=== PATIENT | male | born 1965 ===

== ENCOUNTER → 2017-07-16 | Outpatient (CLI) | payer OTHER ==
[~2017-07-16] MED LIST: BUPR-126 PO; BUPR-472 PO; NEBI5TAB PO; OLME1TAB63 PO; OMEP-218 PO
--- NOTE | 2017-07-16 19:31 | RT STRESS TEST REPORT ---
FACILITY: [facility] PATIENT NAME: YADI SHABAZZ : [id number] MR: [id number] V: [id number] EXAM DATE: ORDERING PHYSICIAN: ALEXYS DEGROOT TECHNOLOGIST: Allegra [employer] Time: 2017-07-16 14:08:22 Total Exercise Time: 00:06:17 Test Indications: Chest Pain / Discomfort Medications: Protocol: BRUCE2 Max HR: 121 BPM 72% of Pred: 167 BPM Max BP: 184/088 mmHG Max Work Load: 7.4 METS Consider chemical stress test Confirmed by TERA KEBEDE ([id number]) on 07/16/2017 7:30:33 PM Referred By: Overread By: TERA KEBEDE
== END ==
LOC: RESP 14:00
PROVIDERS: ATTEND Physician Assistant
DX: R07.89 Other chest pain (principal)
CPT/HCPCS: 93017

== ENCOUNTER → 2017-07-22 | Outpatient (CLI) | payer OTHER ==
--- NOTE | 2017-07-22 15:23 | RADIOLOGY IMAGING REPORT ---
FACILITY: [facility] PATIENT NAME: Jorge Keating : 1965 MR: [id number] V: [id number] EXAM DATE: ORDERING PHYSICIAN: ALEXYS DEGROOT TECHNOLOGIST: Location: [facility] Patient: Jorge Keating : 1965 Visit/Account:[id number] Date of Sevice: 07/22/2017 EXAMINATION: Single Isotope SPECT Imaging with Exercise and Gated SPECT Imaging DATE OF EXAMINATION: 07/22/2017 DATE OF INTERPRETATION: 07/22/2017 REQUESTING PHYSICIAN: ALEXYS DEGROOT INDICATION: The patient is a 51-year-old male evaluated for chest pain. PROCEDURE: After informed consent the patient received an intravenous injection of 12.9 mCi of Tc-9 9m sestamibi followed at the appropriate time interval by rest imaging. The patient then exercised a ccording to the standard Donnell protocol for 10 minutes achieving 11 METS. Resting heart rate was 78 bpm with a peak heart rate of 146 bpm which is 87 % of maximal predicted heart rate for age. Blood pressure at rest was 108 / 83; blood pressure during exercise was 178 / 92. There was no chest pain during exercise. Exercise was discontinued because of fatigue. Baseline EKG demonstrates sinus rhyt hm with inferior T wave inversions. There were no EKG changes of ischemia at peak exercise. Approxi mately one minute and 30 seconds prior to the termination of exercise, the patient received an intrav enous injection of 29.9 mCi of Tc-99m sestamibi followed by stress imaging. RAW DATA: Examination of the summed raw data revealed a good quality study. MYOCARDIAL PERFUSION: The tomographic images demonstrate normal myocardial perfusion with no evidenc e of infarct or ischemia. There is no TID. GATED IMAGES: The gated images demonstrate hyperdynamic ejection fraction >70% with normal wall jose on and thickening IMPRESSION: 1. Normal treadmill ECG with no evidence of ischemia. 2. Normal myocardial perfusion scan. 3. Hyperdynamic LV systolic function; LVEF >70%. 4. Based on the results of this exam, the patient appears to be at low risk for future cardiovascular events. Report Dictated By: Ravi Zacarias at 07/22/2017 3:15 PM Report E-Signed By: Ravi Zacarias at 07/22/2017 3:18 PM WSN:[id number]
== END ==
LOC: NUC 01:28
PROVIDERS: ATTEND Physician Assistant
DX: R94.30 Abnormal result of cardiovascular function study, unspecified (principal)
CPT/HCPCS: 78452; 93017; A9500

== ENCOUNTER → 2018-01-15 | Outpatient (CLI) | payer OTHER ==
--- NOTE | 2018-01-15 16:31 | RADIOLOGY IMAGING REPORT ---
FACILITY: [facility] PATIENT NAME: Jorge Keating : 1965 MR: [id number] V: [id number] EXAM DATE: ORDERING PHYSICIAN: JANI ZAMAN TECHNOLOGIST: Location: [facility] Patient: Jorge Keating : 1965 Visit/Account:[id number] Date of Sevice: 01/15/2018 MRI left knee without contrast Indication: Knee pain. Injury after jumping off of a truck. Comparison: None available. Technique: Multiplanar, multisequence MRI examination is performed of the left knee without contrast. Findings: Examination of the medial compartment demonstrates abnormal horizontal signal within the body and pos terior horn of the medial meniscus. This signal does appear to extend to the undersurface of the junc tion of the body and the posterior horn and is suspicious for a horizontal medial meniscal tear. No d isplaced fragment. Articular surfaces are maintained. Examination of the lateral compartment demonstrates a normal lateral meniscus. The articular cartilag e surfaces are normal. Examination of the patellofemoral compartment demonstrates normal patellar surfaces. There is an area of chondrosis involving the inferior and medial trochlea with subchondral edema and cyst formation i dentified. This measures up to 10 mm in size. ACL and PCL are intact. There is mild thickening of the proximal MCL. There is edema within the soft tissues surrounding the MCL compatible with a low-grade sprain. The lateral collateral ligament complex is maintained. The extensor mechanism is intact. An intermediate sized joint effusion is seen. This extends into a complex appearing popliteal cyst. E juliet extends inferior to this cyst overlying the medial gastrocnemius fascia consistent with recent p artial rupture into the soft tissues. There is a small fluid-filled prepatellar bursa with surrounding edema. Correlate for prepatellar bur sitis symptoms. Subtle reactive edema seen within the adjacent patella. This could be posttraumatic. IMPRESSION: 1. Abnormal horizontal signal within the body and posterior horn of the medial meniscus. As described above, appearance is concerning for a horizontal medial meniscal tear. 2. Intermediate joint effusion extending into a complex popliteal cyst. There has been recent partial rupture of the cyst into the inferior soft tissues. 3. Findings consistent with prepatellar bursitis. This could be posttraumatic and clinical correlatio n is necessary. 4. Inferomedial trochlear chondrosis. 5. Low-grade MCL sprain. Report Dictated By: Juan José Schwarz at 01/15/2018 4:17 PM Report E-Signed By: Juan José Schwarz at 01/15/2018 4:29 PM WSN:[id number]
== END ==
LOC: MRI 01-09 02:28
PROVIDERS: ATTEND Physician Assistant Medical
DX: S83.412A Sprain of medial collateral ligament of left knee, initial encounter (principal); M70.42 Prepatellar bursitis, left knee; S86.812A Strain of other muscle(s) and tendon(s) at lower leg level, left leg, initial encounter

== ENCOUNTER → 2018-09-08 | Outpatient (CLI) | payer OTHER ==
[~2018-09-08] MED LIST changes: +GADOBENATE 529MG/1ML 15ML VIAL IVP ONE
--- NOTE | 2018-09-08 13:30 | RADIOLOGY IMAGING REPORT ---
FACILITY: [facility] PATIENT NAME: Jorge Keating : 1965 MR: [id number] V: [id number] EXAM DATE: ORDERING PHYSICIAN: ALEXYS DEGROOT TECHNOLOGIST: Location: [facility] Patient: Jorge Keating : 1965 Visit/Account:[id number] Date of Sevice: 09/08/2018 Study: MRI of the brain without and with gadolinium contrast. Indication: Headache, visual disturbance Comparison study: None Contrast used: 15 mL MultiHance gadolinium contrast Technique: Multiplanar MRI sequences were obtained through the brain before and after the administrat ion of gadolinium contrast. The examination demonstrates no evidence of acute intracranial hemorrhage. There is no evidence of ex tra-axial collection or hydrocephalus. There is no abnormal signal identified within the brain parenchyma. The pituitary gland is unremarkable in appearance. There is no evidence of abnormality of the pineal gland. A diffusion-weighted sequence was performed and demonstrates no evidence of active ischemia. There is no evidence of active infarct The orbits are unremarkable. The paranasal sinuses are unremarkable Following the administration of gadolinium contrast, there is no abnormal intracranial contrast enhan cement. IMPRESSION:Unremarkable MRI of the brain without and with intravenous contrast. Report Dictated By: Donnell Ayala at 09/08/2018 1:13 PM Report E-Signed By: Donnell Ayala at 09/08/2018 1:26 PM WSN:[id number]
== END ==
LOC: MRI 02:00
PROVIDERS: ATTEND Physician Assistant
DX: H53.453 Other localized visual field defect, bilateral (principal); I10 Essential (primary) hypertension; E11.9 Type 2 diabetes mellitus without complications; E78.5 Hyperlipidemia, unspecified; Z56.3 Stressful work schedule
CPT/HCPCS: 70553; A9577